=== PATIENT | female | born 1980 | race Caucasian/White ===

== ENCOUNTER 2016-11-16 20:45 | Emergency (ER) | payer MEDICAID ==
[2016-11-16 20:45] VITALS: BMI 23.8
[2016-11-16 21:13] VITALS: BP 104/70; PULSE 87; RESP 20; TEMP 98.4; O2SAT 99
--- NOTE | 2016-11-16 21:52 | C.PDOC ---
History Of Present Illness Patient c/o left breast pain for 4 months, worse for the last 2 weeks. Patient denies any swelling, erythema, nipple discharge. Patient had a breast reduction surgery 8 yrs ago. LMP 2 weeks ago. Time Seen by Provider: 11/16/16 21:21 Chief Complaint (Nursing): Breast Problem History Per: Patient History/Exam Limitations: no limitations Onset/Duration Of Symptoms: Other (4 months) Current Symptoms Are (Timing): Worse (for 2 wks) Past Medical History Reviewed: Historical Data, Nursing Documentation Vital Signs: Last Vital Signs Temp 98.4 F 11/16/16 21:08 Pulse 87 11/16/16 21:08 Resp 20 11/16/16 21:08 BP 104/70 11/16/16 21:08 Pulse Ox 99 11/16/16 21:53 - Medical History PMH: Asthma Denies: HIV Surgical History: Appendectomy, - [facility] Procedures RESECTION OF GALLBLADDER, PERCUTANEOUS ENDOSCOPIC APPROACH (09/23/15) VENOUS CATHETERIZATION NEC (11/10/12) Family History: States: Unknown Family Hx - Social History Hx Tobacco Use: No Hx Alcohol Use: No Hx Substance Use: No - Immunization History Hx Tetanus Toxoid Vaccination: No Hx Influenza Vaccination: No Hx Pneumococcal Vaccination: No Review Of Systems Except As Marked, All Systems Reviewed And Found Negative. Physical Exam - Physical Exam Appears: Well, Non-toxic, No Acute Distress Skin: Normal Color, Warm, No Rash Head: Atraumatic, Normacephalic Eye(s): bilateral: Normal Inspection Neck: Normal, Normal ROM Chest: Other (Breast exam : right breast with no palpable masses, non tender, no skin changes, no nipple d/c, no lymphadenopathy, Left Breast with no palpable masses, diffusely tender, no skin changes, no nipple d/c, no lymphadenopathy) Cardiovascular: Rhythm Regular Gastrointestinal/Abdominal: Soft, No Tenderness Neurological/Psych: Oriented x3, Normal Speech, Normal Cognition ED Course And Treatment O2 Sat by Pulse Oximetry: 99 Progress Note: Patient was instructed to f/u with [facility] for breast evaluation, breast US and possible mammogram. Disposition - Disposition Referrals: [facility] [Outside] [facility] [Outside] [facility] [Outside] [facility] [Outside] [facility] [Outside] Disposition: HOME/ ROUTINE Disposition Time: 21:51 Condition: STABLE Additional Instructions: Follow up with OBGYN, you will need breast ultrasound and possible mammogram. Return to ED if feel worse. Prescriptions: Ibuprofen [Motrin Tab] 600 mg PO Q8 #30 tab Instructions: Breast Care for the Non-breast Feeding Woman (ED) Forms: [facility] (Ivorian) Print Language: SETSWANA - Clinical Impression Clinical Impression: Pain of breast
== END 2016-11-16 22:05 | disposition home or self-care (01) ==
LOC: C.ER 20:45
DX: N64.4 Mastodynia (principal)

== ENCOUNTER 2017-02-08 20:50 | Emergency (ER) | payer MEDICAID ==
[2017-02-08 20:51] VITALS: BMI 23.8
[2017-02-08 21:18] VITALS: TEMP 98.4
[2017-02-08 23:40] LABS: BASO % 0.5 % (0.0-2.0); EOS # 0.2 K/uL (0.0-0.7); EOS % 2.3 % (0.0-4.0); HEMATOCRIT 39.5 % (34.0-47.0); LYMPH # 2.8 K/uL (1.0-4.3); LYMPH % 29.6 % (20.0-40.0); MEAN CELL VOLUME 93.2 fL (81.0-99.0); MEAN CORPUSCULAR HEMOGLOBIN 31.6 pg (27.0-31.0); MEAN CORPUSCULAR HGB CONC 33.9 g/dL (33.0-37.0); MEAN PLATELET VOLUME 9.9 fL (7.2-11.7); MONO # 0.6 K/uL (0.0-0.8); MONO % 6.5 % (0.0-10.0); RED CELL DISTRIBUTION WIDTH 12.3 % (11.5-14.5); WHITE BLOOD COUNT 9.3 K/uL (4.8-10.8)
[2017-02-08 23:42] LABS: RBC URINE < 1 /hpf (0-3); TRANSITIONAL EPITHIAL < 1 /hpf (0-3); URINE BACTERIA RARE (<OCC); URINE BILIRUBIN NEGATIVE (NEGATIVE); URINE BLOOD 3+ (NEGATIVE); URINE COLOR Yellow (YELLOW); URINE GLUCOSE (UA) NORMAL (Normal); URINE KETONE NEGATIVE (NEGATIVE); URINE LEUKOCYTE ESTERASE NEG Leu/uL (Negative); URINE PROTEIN NEGATIVE (NEGATIVE); URINE UROBILINOGEN NORMAL mg/dL (0.2-1.0); WBC URINE 1 /hpf (0-5)
[2017-02-08 23:44] LABS: CHLORIDE 100 mmol/L (98-107); SODIUM 135 mmol/L (132-148)
[2017-02-08 23:46] LABS: ALB/GLOB RATIO 1.6 (1.0-2.1); AST/SGOT 28 U/L (14-36); BILIRUBIN,TOTAL 0.6 mg/dL (0.2-1.3); CARBON DIOXIDE 25 mmol/L (22-30); GFR AFRICAN-AMERICAN > 60; TOTAL PROTEIN 7.2 g/dL (6.3-8.3)
[2017-02-08 23:47] LABS: ALKALINE PHOSPHATASE 49 U/L (38-126); ALT/SGPT 50 U/L (9-52); BLOOD UREA NITROGEN 8 mg/dL (7-17); GLUCOSE,RANDOM 92 mg/dL (65-105)
--- NOTE | 2017-02-09 01:26 | C.PDOC ---
History Of Present Illness 36 y/o female presents to ED with complaints of cramping lower abdominal pain for 2 days. Patient also complaints of mild dysuria and denies vomiting, nausea , back pain, vaginal bleeding, vaginal discharge or any other complaints at this time. Time Seen by Provider: 02/08/17 22:02 Chief Complaint (Nursing): Abdominal Pain History Per: Patient History/Exam Limitations: no limitations Onset/Duration Of Symptoms: Days Current Symptoms Are (Timing): Still Present Location Of Pain/Discomfort: Suprapubic Radiation Of Pain To:: None Quality Of Discomfort: Cramping Past Medical History Reviewed: Historical Data, Nursing Documentation, Vital Signs Vital Signs: Last Vital Signs Temp 98.4 F 02/08/17 21:13 Pulse 77 02/08/17 21:13 Resp 20 02/08/17 21:13 BP 107/76 02/08/17 21:13 Pulse Ox 100 02/09/17 01:26 - Medical History PMH: Asthma Surgical History: Appendectomy, - [facility] Procedures RESECTION OF GALLBLADDER, PERCUTANEOUS ENDOSCOPIC APPROACH (09/23/15) VENOUS CATHETERIZATION NEC (11/10/12) Family History: States: No Known Family Hx - Social History Hx Tobacco Use: No Hx Alcohol Use: No Hx Substance Use: No - Immunization History Hx Tetanus Toxoid Vaccination: No Hx Influenza Vaccination: No Hx Pneumococcal Vaccination: No Review Of Systems Constitutional: Negative for: Fever, Chills Gastrointestinal: Positive for: Abdominal Pain. Negative for: Nausea, Vomiting Genitourinary: Positive for: Dysuria. Negative for: Vaginal Discharge, Vaginal Bleeding Skin: Negative for: Rash Physical Exam - Physical Exam Appears: Non-toxic, No Acute Distress Skin: Normal Color, Warm, Dry, No Rash Head: Atraumatic, Normacephalic Eye(s): bilateral: Normal Inspection Oral Mucosa: Moist Neck: Normal ROM, Supple Chest: Symmetrical Cardiovascular: Rhythm Regular Respiratory: Normal Breath Sounds, No Rales, No Rhonchi, No Wheezing Gastrointestinal/Abdominal: Soft, No Tenderness, No Guarding, No Rebound Back: No CVA Tenderness Neurological/Psych: Oriented x3 ED Course And Treatment - Laboratory Results Result Diagrams: 02/08/17 23:34 02/08/17 23:34 Lab Interpretation: Normal (UA neg.) Urine POC: Negative O2 Sat by Pulse Oximetry: 100 (RA) Pulse Ox Interpretation: Normal - Other Rad abd X-Ray: Interpreted by Me (+FOS) Reevaluation Time: 01:25 Reassessment Condition: Improved Medical Decision Making Medical Decision Making: no UTI, prob constip re-eval after laxative Disposition Doctor Will See Patient In The: Office Counseled Patient/Family Regarding: Studies Performed, Diagnosis - Disposition Referrals: Chris Babb, YANDEL, [facility] [Advanced Practice Nurse] - Disposition Time: :26 Condition: GOOD Additional Instructions: billy un purgante y re-evalua espinosa molestia del abdomen despues de usar el parviz 2- 3 veces Ud no tiene infeccion de la orina Prueba de embarasso NEGATIVO Instructions: Constipation (ED) Forms: [facility] (French) Print Language: CHINESE - Clinical Impression Clinical Impression: Constipation, Abdominal pain - Scribe Statement The provider has reviewed the documentation as recorded by the Scribaishwarya Munroe All medical record entries made by the Scribe were at my direction and personally dictated by me. I have reviewed the chart and agree that the record accurately reflects my personal performance of the history, physical exam, medical decision making, and the department course for this patient. I have also personally directed, reviewed, and agree with the discharge instructions and disposition.
[2017-02-09 02:57] VITALS: BP 120/80; PULSE 80; RESP 14; O2SAT 98
--- NOTE | 2017-02-09 09:36 | RAD ---
HISTORY: abd pain COMPARISON: No prior. Comparison made with abdominal radiographs 09/12/2015. FINDINGS: BOWEL: Moderate amount of stool is seen within the cysts at ascending colon consistent with mild fecal retention/constipation. Metallic clips and chain sutures again seen overlying the right lower quadrant of the abdomen abutting the medial possibly secondary to prior appendectomy however clinical correlation with history recommended. No evidence of acute mechanical bowel obstruction. . Metallic clips also seen right upper quadrant gliotic consistent with prior cholecystectomy new since prior exam. BONES: Normal. OTHER FINDINGS: None. IMPRESSION: Findings suggest mild constipation. Metallic clips right upper quadrant gliotic consistent prior cholecystectomy. Re- demonstrated R postoperative changes along the medial cecum likely related to prior appendectomy however correlation with surgical history recommended
== END 2017-02-09 02:57 | disposition home or self-care (01) ==
LOC: C.ER 20:50
DX: R10.30 Lower abdominal pain, unspecified (principal); K59.00 Constipation, unspecified